=== PATIENT | male | born 1940 | race Caucasian/White ===

== ENCOUNTER 2016-12-07 09:22 | Emergency (ER) | payer MEDICAID, OTHER ==
[2016-12-07 09:31] VITALS: RESP 18
[2016-12-07] MEDS ORDERED: IPRATROPIUM/ALBUTEROL 3 ML DEYVIAL IH ONE (09:44)
--- NOTE | 2016-12-07 09:48 | EDPHY ---
H & P Stated Complaint: cough/congestion Time Seen by Provider: 12/07/16 09:35 HPI/ROS: CHIEF COMPLAINT: Cough HISTORY OF PRESENT ILLNESS: Patient is a 76-year-old man with a history of COPD who was 3 L of oxygen at baseline as well as type 2 diabetes, coronary artery disease, peripheral vascular disease with multiple stents and CABG who comes to the ER complaining of a cough and sinus congestion. He states that 1 week ago he had cold and he laid on the couch for an entire week. He felt like he was getting better but over the last 2 days has had increasing mucus production from his sinuses and from his cough. He does not feel short of breath. He denies chest pain. Denies wheezing. She denies fevers. He states that he also has mild constipation but this resolved after taking MiraLax. He states that he had a large loose bowel movement that resolves his symptoms 4 days ago but has not had another bowel movement since. He denies abdominal pain or distention. REVIEW OF SYSTEMS: Constitutional: denies: chills, fever, recent illness, recent injury EENTM: See HPI Respiratory: See HPI Cardiac: denies: chest pain, irregular heart rate, lightheadedness, palpitations Gastrointestinal/Abdominal: Constipation denies: abdominal pain, nausea, vomiting, blood streaked stools Genitourinary: denies: dysuria, frequency, hematuria, pain Musculoskeletal: denies: joint pain, muscle pain Skin: denies: lesions, rash, jaundice, bruising Neurological: denies: headache, numbness, paresthesia, tingling, dizziness, weakness Hematologic/Lymphatic: denies: blood clots, easy bleeding, easy bruising Immunologic/allergic: denies: HIV/AIDS, transplant EXAM: GENERAL: Well-appearing, well-nourished and in no acute distress. HEAD: Atraumatic, normocephalic. EYES: Pupils equal round and reactive to light, extraocular movements intact, sclera anicteric, conjunctiva are normal. ENT: TMs normal, nares patent, oropharynx clear without exudates. Moist mucous membranes. NECK: Normal range of motion, supple without lymphadenopathy or JVD. LUNGS: Breath sounds clear to auscultation bilaterally and equal. No wheezes mild rhonchi right lower lobe HEART: Regular rate and rhythm without murmurs, rubs or gallops. ABDOMEN: Soft, nontender, normoactive bowel sounds. No guarding, no rebound. No masses appreciated. BACK: No CVA tenderness, no spinal tenderness, step-offs or deformities EXTREMITIES: Normal range of motion, no pitting or edema. No clubbing or cyanosis. NEUROLOGICAL: Cranial nerves II through XII grossly intact. Normal speech, normal gait. 5/5 strength, normal movement in all extremities, normal sensation PSYCH: Normal mood, normal affect. SKIN: Warm, dry, normal turgor, no visible rashes or lesions. Source: Patient Exam Limitations: No limitations - Personal History Current Tetanus/Diphtheria Vaccine: Yes Tetanus Vaccine Date: UNSURE - Medical/Surgical History Hx Asthma: No Hx Chronic Respiratory Disease: Yes Hx Diabetes: Yes Hx Cardiac Disease: Yes Hx Renal Disease: No Hx Cirrhosis: No Hx Alcoholism: No Hx HIV/AIDS: No Hx Splenectomy or Spleen Trauma: No Other PMH: PVD, DM. CARDIAC STENTS, LEG STENTS, SHINGLES, PROSTATE CANCER, EMPHYSEMA, quadruple bypass (2014) - Family History Significant Family History: Hypertension - Social History Smoking Status: Former smoker Alcohol Use: Sober Drug Use: None Constitutional: Initial Vital Signs Temperature (C) 36.4 C 12/07/16 09:27 Heart Rate 75 12/07/16 09:27 Respiratory Rate 18 12/07/16 09:27 Blood Pressure 144/80 H 12/07/16 09:27 O2 Sat (%) 90 L 12/07/16 09:27 O2 Delivery Mode Room Air Allergies/Adverse Reactions: No Known Allergies Allergy (Verified 12/07/16 09:26) Home Medications: Medication Instructions Recorded Aspirin [Aspirin 81mg (*)] 81 mg PO DAILY 12/09/14 Beclomethasone Qvar 40 [Qvar 40 1 puffs IH BID 12/09/14 (*)] Cholecalciferol Vit D3 [Vitamin D3 1,000 units PO DAILY 12/09/14 (*)] Fluticasone Nasal [Flonase Nasal 1 sprays NASAL DAILY 12/09/14 [place]] Metformin HCl [Metformin 1000 mg] 1,000 mg PO BIDMEAL 12/09/14 Multivitamins [Multivitamin (*)] 1 each PO DAILY 12/09/14 Nitroglycerin 0.4 mg SL PRN PRN 12/09/14 [place]-3 Fatty Acids [Fish Oil 1000 1,000 mg PO DAILY 12/09/14 mg (*)] Varenicline Tartrate [Chantix 1MG 1 mg PO BID 12/09/14 (*)] Tamsulosin HCl [Flomax 0.4 MG (*)] 0.4 mg PO DAILY #30 cap 12/13/14 Anoro Ellipta 62.5-25 Mcg INH 1 puffs IH DAILY 06/03/16 Azelastine 2 sprays EACHNARE BID 06/03/16 Coreg 12.5 mg PO DAILY 06/03/16 Lasix 40 MG (*) 1 tab PO DAILY 06/03/16 Levemir 35 units SQ HS 06/03/16 Levemir 45 units SQ DAILY06 06/03/16 Proventil 1 puffs IH Q6H PRN 06/03/16 Vitamin C 1 tab PO DAILY 06/03/16 AZITHROMYCIN [Z-PACK] 250 mg PO DAILY #4 tab 12/07/16 Medical Decision Making - Diagnostics EKG Interpretation: An EKG obtained and was read and documented in trace view. Please see trace view for full reading and report. Sinus rhythm, interventricular conduction delay, nonspecific T-wave inversions, similar to previous Imaging: X-ray: chest x-ray was obtained. I viewed the images myself on the PACS system. My interpretation of the images is: Bronchiectasis changes. The radiologist interpretation is no acute cardiopulmonary disease. ED Course/Re-evaluation: 11:10 a.m. the patient is doing well. He is saturating 93% on room air while asleep. He does occasionally dip down to 89% while talking. This is normal for him. He is supposed to wear 2-3 L of oxygen. I encouraged him to do this. I will also start him on azithromycin for what primarily appears to be a sinus infection and postnasal drip. His x-ray is reassuring. His lab work is reassuring. He understands this and is eager to go home. We discussed indications for returning. I encouraged him to return in 24 hours or sooner if he is not improving. Additional verbal discharge instructions given. Differential Diagnosis: Partial list of the Differential diagnosis considered include but were not limited to; sinusitis, bronchitis, pneumonia, COPD exacerbation and although unlikely based on the history and physical exam, I also considered dissection, acute coronary disease, PE. I discussed these differential diagnoses and the plan with the patient as well as the usual and expected course. The patient understands that the diagnosis is provisional and that in medicine we are not always correct and that further workup is often warranted. Usual and customary warnings were given. All of the patient's questions were answered. The patient was instructed to return to the emergency department should the symptoms at all worsen or return, otherwise to followup with the physician as we discussed. - Data Points Laboratory Results: Laboratory Results 12/07/16 10:00 12/07/16 10:00 12/07/16 10:00 WBC 10.12 H 10^3/uL (3.80-9.50) RBC 4.58 10^6/uL (4.40-6.38) Hgb 12.4 L g/dL (13.7-17.5) Hct 39.4 L % (40.0-51.0) MCV 86.0 fL (81.5-99.8) MCH 27.1 L pg (27.9-34.1) MCHC 31.5 L g/dL (32.4-36.7) RDW 15.0 % (11.5-15.2) Plt Count 264 10^3/uL (150-400) MPV 9.9 fL (8.7-11.7) Neut % (Auto) 76.6 H % (39.3-74.2) Lymph % (Auto) 8.7 L % (15.0-45.0) [place] % (Auto) 12.8 % (4.5-13.0) Eos % (Auto) 1.2 % (0.6-7.6) Baso % (Auto) 0.3 % (0.3-1.7) Nucleat RBC Rel Count 0.0 % (0.0-0.2) Absolute Neuts (auto) 7.75 H 10^3/uL (1.70-6.50) Absolute Lymphs (auto) 0.88 L 10^3/uL (1.00-3.00) Absolute Monos (auto) 1.30 H 10^3/uL (0.30-0.80) Absolute Eos (auto) 0.12 10^3/uL (0.03-0.40) Absolute Basos (auto) 0.03 10^3/uL (0.02-0.10) Absolute Nucleated RBC 0.00 10^3/uL (0-0.01) Immature Gran % 0.4 % (0.0-1.1) Immature Gran # 0.04 10^3/uL (0.00-0.10) VBG Lactic Acid 1.0 mmol/L (0.7-2.1) Sodium 144 mEq/L (134-144) Potassium 4.8 mEq/L (3.5-5.2) Chloride 100 mEq/L (97-110) Carbon Dioxide 29 mEq/l (22-31) Anion Gap 15 mEq/L (8-16) BUN 32 H mg/dL (7-23) Creatinine 1.0 mg/dL (0.7-1.3) Estimated GFR > 60 Glucose 115 H mg/dL (70-100) Calcium 9.4 mg/dL (8.5-10.4) Influenza Typ A,B (DFA) NEGATIVE FOR FLU (NEGATIVE) Medications Given: Discontinued Medications Albuterol/Ipratropium (Duoneb) 3 ml IH EDNOW ONE Stop: 12/07/16 09:45 Last Admin: 12/07/16 10:11 Dose: 3 ml Azithromycin (Zithromax) 500 mg PO EDNOW ONE PRN Reason: Protocol Stop: 12/07/16 11:13 Last Admin: 12/07/16 11:20 Dose: 500 mg Departure - Departure Disposition: Home, Routine, Self-Care Clinical Impression: Acute bronchitis Qualifiers: Bronchitis organism: unspecified organism Qualifier Code: (J20.9) Acute bronchitis, unspecified Sinusitis Qualifiers: Sinusitis location: unspecified location Chronicity: acute Recurrence: non- recurrent Qualifier Code: (J01.90) Acute sinusitis, unspecified Condition: Fair Instructions: Acute Bronchitis (ED), Sinusitis (ED), Azithromycin (By mouth) Additional Instructions: Continue taking your albuterol inhaler as we discussed. Also wear oxygen as we discussed. Return if your symptoms are not improving at than 24 hours. Referrals: Aleksandra Dominguez MD [Primary Care Provider] - As per Instructions Prescriptions: AZITHROMYCIN [Z-PACK] 250 mg PO DAILY #4 tab
--- NOTE | 2016-12-07 10:09 | CPEKG ---
Heart Rate: 56 RR Interval: 1071 P-R Interval: 160 QRSD Interval: 130 QT Interval: 400 QTC Interval: 387 P [place]: 56 QRS [place]: 49 T Wave [place]: 114 EKG Severity - ABNORMAL ECG - EKG Impression: SINUS RHYTHM EKG Impression: NONSPECIFIC INTRAVENTRICULAR CONDUCTION DELAY EKG Impression: similar to previous Electronically Signed By: Jaison Gaytan 07-Dec-2016 10:18:54
--- NOTE | 2016-12-07 10:18 | DX ---
Chest 2 View History: Dyspnea Comparisons: 31 January 2014 Findings: Heart size is within normal limits. The aorta is tortuous with calcifications indicating at herosclerotic disease. Emphysematous configuration to the chest. Mild peribronchial wall thickening. Mild fibrotic change of both lung bases. No evidence for pleural effusion. Mild degenerative change i n the thoracic spine. Impression: No evidence for acute cardiopulmonary abnormality. Chronic findings as above.
[2016-12-07 10:19] LABS: % IMMATURE GRANULYOCYTES 0.4 % (0.0-1.1); ABSOLUTE IMMATURE GRANULOCYTES 0.04 10^3/uL (0.00-0.10); ADD DIFF? NO; ADD MORPH? NO; ADD SCAN? NO; ATYPICAL LYMPHOCYTE FLAG 0 (0-99); FRAGMENT RBC FLAG 0 (0-99); HEMATOCRIT 39.4 % (40.0-51.0); HEMOGLOBIN 12.4 g/dL (13.7-17.5); LEFT SHIFT FLG 0 (0-99); LIPEMIA HEMOLYSIS FLAG 80 (0-99); MEAN CELL HEMOGLOBIN 27.1 pg (27.9-34.1); MEAN CELL HEMOGLOBIN CONCENTR. 31.5 g/dL (32.4-36.7); MEAN PLATELET VOLUME 9.9 fL (8.7-11.7); PLATELET CLUMPS FLAG 0 (0-99); PLATELET COUNT 264 10^3/uL (150-400); RED BLOOD CELL COUNT 4.58 10^6/uL (4.40-6.38)
[2016-12-07 10:36] LABS: ANION GAP 15 mEq/L (8-16); CALCIUM 9.4 mg/dL (8.5-10.4); CARBON DIOXIDE 29 mEq/l (22-31); CHLORIDE 100 mEq/L (97-110); GLOMERULAR FILTRATION RATE > 60; GLUCOSE 115 mg/dL (70-100); POTASSIUM 4.8 mEq/L (3.5-5.2); SODIUM 144 mEq/L (134-144)
[2016-12-07] MEDS ORDERED: AZITHROMYCIN 250 MG TAB PO ONE (11:12)
[2016-12-07 11:36] VITALS: BP 134/74; PULSE 73; TEMP 98.2; O2SAT 87
== END 2016-12-07 11:34 | disposition home or self-care (01) ==
DX: J20.9 Acute bronchitis, unspecified (principal); J01.90 Acute sinusitis, unspecified; E11.9 Type 2 diabetes mellitus without complications; Z85.46 Personal history of malignant neoplasm of prostate; Z79.82 Long term (current) use of aspirin; Z95.5 Presence of coronary angioplasty implant and graft; Z87.891 Personal history of nicotine dependence

== ENCOUNTER → 2017-08-25 | Outpatient (CLI) | payer OTHER, MEDICAID | LOC: FIMAGING 10:55 | PROVIDERS: ATTEND Psychiatry & Neurology Neurology | DX: C79.51 Secondary malignant neoplasm of bone (principal); M50.21 Other cervical disc displacement, high cervical region; M50.30 Other cervical disc degeneration, unspecified cervical region; Z85.46 Personal history of malignant neoplasm of prostate ==

== ENCOUNTER 2018-07-18 12:29 | Observation (INO) | payer OTHER, MEDICAID ==
--- NOTE | 2018-07-18 13:28 | EDPHY ---
General - History Smoking Status: Former smoker Time Seen by Provider: 07/18/18 13:17 Narrative: CHIEF COMPLAINT: Cough HISTORY OF PRESENT ILLNESS: Patient presents with complaints of cough. This been present for nearly 3 weeks. It was dry at 1st but not productive with thick sputum. He feels that it started in his sinuses and throat with drainage. Symptoms have been persistent without improvement. He has had no chest pain during this. He has had no shortness of breath. He feels that his right ribs have been sore only when coughing. He does associate this with some drainage and crusting of the eyelids at times, runny nose and congestion. No exertional complaints. No orthopnea. He has no swelling of the lower extremity side of baseline. No recent travel, trauma or surgery. Evaluated by his oncologist recently with clinical suggestion of upper respiratory infection. No formal workup. No other associated complaints or modifying factors. REVIEW OF SYSTEMS: Ten systems reviewed and are negative unless otherwise noted in the HPI PCP: Dr. Aleksandra Dominguez SPECIALISTS: Dr. Isaacs, oncology Dr. Lou, cardiology PAST MEDICAL HISTORY: Prostate cancer with ongoing oral chemotherapy. Coronary artery disease, peripheral vascular disease, diabetes mellitus, shingles, emphysema PAST SURGICAL HISTORY: No recent surgical history. He status post fem-pop bypasses, cardiac stent placement, CABG SOCIAL HISTORY: Never smoker. Lives independently with his partner. FAMILY HISTORY: Noncontributory EXAMINATION General Appearance: Alert, no distress Head: normocephalic, atraumatic Eyes: Pupils equal and round, no conjunctival pallor or injection. EOM symmetric. ENT, Mouth: Mucous membranes moist Neck: Normal inspection, supple, non-tender Respiratory: Mild expiratory wheezes. Mild rhonchi. No crackles, diminishment or consolidation. Cardiovascular: Regular rate and rhythm Gastrointestinal: Abdomen is soft and nontender Back: non-tender, no bony abnormalities Neurological: A&O, nonfocal, normal gait Skin: Warm and dry, no rash Extremities: Nontender, no pedal edema Psychiatric: Mood and affect normal DIFFERENTIAL DIAGNOSES: Including but not limited to bronchitis, pneumonia, pneumonitis, PE, pleurisy, congestive heart failure, sepsis MDM: 1:20 p.m. Cough x3 weeks that has been somewhat productive. No fever. No chest pain. No shortness of breath. He has normal vital signs and is on his baseline level of 3 L supplemental oxygen at home. I have ordered chest x-ray two view and DuoNeb treatment. He in no acute distress. 1:40 p.m. Case discussed with Dr. Henriquez and she recommends laboratory studies given the patient's age and history of cancer. I do feel this is reasonable. 2:00 p.m. Chest x-ray does reveal possible left upper lobe pneumonia with increased metastatic disease, which is known to the patient. 2:[address] Ebony Henriquez has evaluated the patient. She recommends CT angiography of the chest to rule out PE and for further evaluation of the possible pneumonia. 3:[address] scan does reveal and left segmental PE. There is no visualize pneumonia. There are chronic changes as noted in the report. Given the patient's PE, age, history of prostatic cancer and oxygen dependency Dr. Henriquez recommends admission the hospital. I will discuss with hospitalist. 4:00 p.m. Case discussed with hospitalist Dr. Soto. He will admit the patient to his service. He requested 1 milligram/kilogram dosing of Lovenox. The patient is admitted in stable condition. SUPERVISION: Patient was independently examined, but I discussed the case with my secondary supervising physician Dr. Henriquez (Anil Garcia) Discussion: I evaluated and participated in the management of the patient. I also evaluated the patient independently. My co-signature indicates that I have reviewed this chart and I agree with the findings and plan of care as documented. 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 He has not been running a fever. Cough is not particularly productive. He denies any chest pain. Past history significant for prostate cancer on oral chemotherapy, coronary artery disease, peripheral vascular disease, diabetes, and COPD. Patient does report that he has not been using his inhalers recently. On examination the patient actually looks quite well. He has an occasional cough. VITAL SIGNS: see nurse's notes. GEN: Well-developed, well-nourished, in no acute distress. HEENT: Normal, no discharge or icterus, moist mucous membranes. Neck: supple, FROM. LUNGS: Diminished breath sounds throughout, occasional faint wheeze auscultated. No rhonchi. CARDIAC: Regular rate and rhythm, no rubs, murmurs or gallops. ABDOMEN: Soft, nontender, nondistended, bowel sounds normal. BACK: No CVA tenderness. No vertebral tenderness. EXTREMITIES: No edema, FROM. NEURO: Alert and oriented, grossly nonfocal. SKIN: Warm and dry, no rash. Chest x-ray indicated potential patchy infiltrate in the left upper lobe. Given patient's history of cancer and numerous weeks of ongoing symptoms, CT scan of the chest was ordered to further evaluate for potential infection versus radiation changes verses pulmonary embolism. CT scan was positive for segmental pulmonary emboli. Patient's course was discussed with the hospitalist service. He will be admitted to the hospital for ongoing anticoagulation and further evaluation. Patient understands the implications this pulmonary emboli. (Ebony Henriquez) - Objective Vital Signs: Initial Vital Signs Temperature (C) 36.3 C 07/18/18 12:44 Heart Rate 72 07/18/18 12:44 Respiratory Rate 18 07/18/18 12:44 Blood Pressure 145/73 H 07/18/18 12:44 O2 Sat (%) 91 L 07/18/18 12:44 O2 Delivery Mode Room Air O2 (L/minute) 3 Allergies/Adverse Reactions: No Known Allergies Allergy (Verified 07/18/18 12:42) Home Medications: Medication Instructions Recorded Aspirin [Aspirin 81mg (*)] 81 mg PO HS 12/09/14 Beclomethasone Qvar 40 [Qvar 40] 1 puffs IH BID 12/09/14 Cholecalciferol Vit D3 [Vitamin D3 5,000 units PO BID 12/09/14 (*)] Fluticasone Nasal [Flonase Nasal 1 sprays NASAL DAILY 12/09/14 [place]] Metformin HCl [Metformin 1000 mg] 1,000 mg PO BIDMEAL 12/09/14 Multivitamins [Multivitamin (*)] 1 each PO DAILY 12/09/14 Nitroglycerin 0.4 mg SL PRN PRN 12/09/14 [place]-3 Fatty Acids [Fish Oil 1000 1,000 mg PO DAILY 12/09/14 mg (*)] Varenicline Tartrate [Chantix 1MG 1 mg PO BID 12/09/14 (*)] Tamsulosin HCl [Flomax 0.4 MG (*)] 0.4 mg PO DAILY #30 cap 12/13/14 Anoro Ellipta 62.5-25 Mcg INH 1 puffs IH DAILY 06/03/16 Ascorbic Acid [Vitamin C 500 mg 1,000 mg PO DAILY 06/03/16 (*)] Azelastine 2 sprays EACHNARE BID 06/03/16 Levemir 35 units SQ HS 06/03/16 Levemir 45 units SQ DAILY06 06/03/16 Abiraterone Acetate [Zytiga] 1,000 mg PO DAILY 07/18/18 Carvedilol [Coreg (*)] 6.25 mg PO BIDMEAL 07/18/18 Denosumab [Prolia] 60 mg SQ Q90D 07/18/18 Furosemide [Lasix 20 MG (*)] 20 mg PO BID 07/18/18 Enoxaparin [Lovenox 80 MG (*)] 80 mg SC BID@0400,1600 #14 syr 07/19/18 Enoxaparin [Lovenox 80 MG (*)] 80 mg SQ Q12H #24 syr 07/19/18 Warfarin Sodium 5 mg PO HS #30 tablet 07/19/18 guaiFENesin [Mucinex 600 MG (*)] 1,200 mg PO BID tab.er 07/19/18 Laboratory Results: Laboratory Results 07/18/18 14:01 07/18/18 14:01 Medications Given: Discontinued Medications Acetaminophen (Tylenol) 650 mg PO Q4HRS PRN PRN Reason: Pain, Mild/Fever, Can Take PO Stop: 01/14/19 16:11 Last Admin: 07/18/18 21:37 Dose: 650 mg Albuterol/Ipratropium (Duoneb) 3 ml IH EDNOW ONE Stop: 07/18/18 13:30 Last Admin: 07/18/18 13:47 Dose: 3 ml Albuterol/Ipratropium (Duoneb) 3 ml IH Q6HRS [place] Stop: 01/14/19 17:59 Last Admin: 07/19/18 10:21 Dose: 3 ml Ascorbic Acid (Vitamin C) 1,000 mg PO DAILY [place] Stop: 01/15/19 08:59 Last Admin: 07/19/18 08:38 Dose: 1,000 mg Aspirin (Aspirin) 81 mg PO HS [facility] Stop: 01/14/19 20:59 Last Admin: 07/18/18 21:37 Dose: 81 mg Azelastine HCl (Astelin) 2 sprays EACHNARE BID [facility] Stop: 01/14/19 20:59 Last Admin: 07/19/18 08:44 Dose: 2 spray Beclomethasone Dipropionate (Qvar Redihaler) 1 inh IH BID [facility] Stop: 01/14/19 20:59 Last Admin: 07/19/18 10:13 Dose: 1 inh Carvedilol (Coreg) 6.25 mg PO BIDMEAL [facility] Stop: 01/14/19 17:59 Last Admin: 07/19/18 08:37 Dose: 6.25 mg Cetirizine HCl (Zyrtec) 10 mg PO HS [facility] Stop: 01/14/19 20:59 Last Admin: 07/18/18 21:37 Dose: 10 mg Cholecalciferol (Vitamin D) 5,000 units PO BID [facility] Stop: 01/14/19 20:59 Last Admin: 07/19/18 08:38 Dose: 5,000 units Enoxaparin Sodium (Lovenox) 80 mg SC EDNOW ONE Stop: 07/18/18 15:56 Last Admin: 07/18/18 16:11 Dose: 80 mg Enoxaparin Sodium (Lovenox) 80 mg SC BID@0400,1600 [facility] Stop: 01/15/19 03:59 Last Admin: 07/19/18 14:44 Dose: 80 mg Fluticasone Propionate (Flonase Nasal [place]) 1 sprays EACHNARE DAILY [facility] Stop: 01/15/19 08:59 Last Admin: 07/19/18 08:45 Dose: 1 spray Furosemide (Lasix) 20 mg PO BID [facility] Stop: 01/14/19 20:59 Last Admin: 07/19/18 08:38 Dose: 20 mg Guaifenesin (Mucinex) 1,200 mg PO BID [facility] Stop: 01/14/19 20:59 Last Admin: 07/19/18 08:38 Dose: 1,200 mg Sodium Chloride (Ns) 500 mls @ 1,000 mls/hr IV EDNOW ONE PRN Reason: Protocol Stop: 07/18/18 15:30 Last Admin: 07/18/18 15:05 Dose: 500 mls Insulin Glargine (Lantus Syringe) 40 units SC BID [place] Stop: 01/14/19 20:59 Last Admin: 07/19/18 10:13 Dose: 40 units Insulin Human Regular (Humulin R) 0 unit SC ACHS CABRERA PRN Reason: Protocol Stop: 01/14/19 20:59 Last Admin: 07/19/18 12:03 Dose: Not Given Miscellaneous Medication (Abiraterone Acetate [Zytiga]) 1,000 mg PO DAILY [place] Stop: 01/15/19 08:59 Last Admin: 07/19/18 10:58 Dose: Not Given Miscellaneous Medication (Anoro Ellipta 62.5-25 Mcg Inh) 1 puffs IH DAILY [place] Stop: 01/15/19 08:59 Last Admin: 07/19/18 10:20 Dose: Not Given Multivitamins (Tab-A-Sanjeev) 1 each PO DAILY [place] Stop: 01/15/19 08:59 Last Admin: 07/19/18 08:37 Dose: 1 each [id number] Ethyl Esters (Fish Oil) 1,000 mg PO DAILY [place] Stop: 01/15/19 08:59 Last Admin: 07/19/18 08:37 Dose: 1,000 mg Tamsulosin HCl (Flomax) 0.4 mg PO DAILY [place] Stop: 01/15/19 08:59 Last Admin: 07/19/18 08:38 Dose: 0.4 mg Varenicline (Chantix) 1 mg PO BID [facility] Stop: 01/14/19 20:59 Last Admin: 07/19/18 08:44 Dose: 1 mg Departure - Departure Disposition: [facility] Acute Clinical Impression: Pulmonary embolus, left, Bronchitis, Prostate cancer Condition: Good
[2018-07-18] MEDS ORDERED: IPRATROPIUM/ALBUTEROL 3 ML DEYVIAL IH ONE (13:29)
[2018-07-18 14:10] LABS: PLATELET COUNT 233 10^3/uL (150-400)
[2018-07-18] MEDS ORDERED: NS 500 ML IV ONE (15:01)
[2018-07-18] MEDS ORDERED: IOPAMIDOL (ISOVUE 370) 100 ML BTL IV ONE (15:06)
[2018-07-18] MEDS ORDERED: ENOXAPARIN 80 MG/0.8 ML SYR SC ONE (15:55)
[2018-07-18] MEDS ORDERED: ONDANSETRON DISINTEGRATING 4 MG TAB PO PRN (16:12)
[2018-07-18] MEDS ORDERED: ONDANSETRON 4 MG/2 ML VIAL IVP PRN (16:12)
[2018-07-18] MEDS ORDERED: ACETAMINOPHEN 325 MG TAB PO PRN (16:12)
[2018-07-18] MEDS ORDERED: NITROGLYCERIN 0.4 MG BTL SL PRN (17:52)
[2018-07-18] MEDS ORDERED: D50W 25 GM/50 ML SYR IVP PRN (17:54)
--- NOTE | 2018-07-18 17:58 | PDGENHP ---
History and Physical - Chief Complaint Acute cough - History of Present Illness Primary care provider: Dr. Devi Dominguez Primary spool sorter: Dr. Higinio Lou Primary manager camp: [facility] HPI: 77-year-old male presenting with acute cough characterized as nonproductive with associated exertional shortness of breath, postnasal drip with onset of symptoms approximately 3 weeks ago and constant duration thereafter. The patient reports that his cough has been mildly alleviated by duo nebulizer treatment received in the emergency department. He has been attempting to manage it with his home albuterol inhaler without any significant improvement prior to presenting. He reports that approximately 3 days ago he electively discontinued his home inhaled steroid as well as his home long acting beta agonist because he is due for an annual oxygen need reassessment and he did not want these medications to skew his results. The patient has also been taking Afrin to alleviate his postnasal drip, and although this has been mildly effective, the patient is concerned regarding persistent use of this medication. He has otherwise been afebrile, has not had any chest pain, but does endorse some mild lower extremity edema. He denies any recent travel. History Information - Allergies/Home Medication List Allergies/Adverse Reactions: No Known Allergies Allergy (Verified 07/18/18 12:42) Home Medications: Aspirin [Aspirin 81mg (*)] 81 mg PO HS 12/09/14 [Last Taken 07/17/18] Beclomethasone Qvar 40 [Qvar 40] 1 puffs IH BID 12/09/14 [Last Taken 07/16/18] Cholecalciferol Vit D3 [Vitamin D3 (*)] 5,000 units PO BID 12/09/14 [Last Taken 07/18/18 AM DOSE] Fluticasone Nasal [Flonase Nasal [place]] 1 sprays NASAL DAILY 12/09/14 [Last Taken Unknown] Metformin HCl [Metformin 1000 mg] 1,000 mg PO BIDMEAL 12/09/14 [Last Taken 07/18] Multivitamins [Multivitamin (*)] 1 each PO DAILY 12/09/14 [Last Taken 07/18/18] Nitroglycerin 0.4 mg SL PRN PRN 12/09/14 [Last Taken Unknown] Enochs-3 Fatty Acids [Fish Oil 1000 mg (*)] 1,000 mg PO DAILY 01/19/15 [Last Taken 07/18/18] Varenicline Tartrate [Chantix 1MG (*)] 1 mg PO BID 12/09/14 [Last Taken AM DOSE] Anoro Ellipta 62.5-25 Mcg INH 1 puffs IH DAILY 06/03/16 [Last Taken 06/07/16] Ascorbic Acid [Vitamin C 500 mg (*)] 1,000 mg PO DAILY 06/03/16 [Last Taken ] Azelastine 2 sprays EACHNARE BID 06/03/16 [Last Taken 06/07/16] Levemir 35 units SQ HS 06/03/16 [Last Taken 07/17/18] Levemir 45 units SQ DAILY06 06/03/16 [Last Taken 07/18/18] Abiraterone Acetate [Zytiga] 1,000 mg PO DAILY 07/18/18 [Last Taken 07/18/18] Carvedilol [Coreg (*)] 6.25 mg PO BIDMEAL 07/18/18 [Last Taken 07/18/18 AM DOSE] Denosumab [Prolia] 60 mg SQ Q90D 07/18/18 [Last Taken 07/15/18] Furosemide [Lasix 20 MG (*)] 20 mg PO BID 07/18/18 [Last Taken 07/18/18 AM DOSE] I have personally reviewed and updated: family history, medical history, social history, surgical history - Past Medical History coronary artery disease (With CABG and cardiac stents), COPD (With chronic hypoxic respiratory failure, 3 L nasal cannula at baseline), 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 Metastatic prostate cancer with bony metastases, has received chemotherapy at [facility] - Surgical History Reports: coronary bypass surgery Additional surgical history: Bilateral femoral stents - Family History Additional family history: No family history of venous thromboembolism, mother had myocardial infarction and diabetes - Social History Smoking Status: Former smoker (Occasional cigarette use) Alcohol Use: None Drug Use: None Additional social history: Reports that he is physically active at baseline Review of Systems Review of Systems: ROS: 10pt was reviewed & negative except for what was stated in HPI & below EENMT: Reports: other (Postnasal drip) Cardiac: Reports: edema Respiratory: Reports: cough, shortness of breath Physical Exam Physical Exam: Temp Pulse Resp BP Pulse Ox 36.3 C 68 16 134/78 H 93 07/18/18 12:44 07/18/18 17:22 07/18/18 17:22 07/18/18 17:22 07/18/18 17:22 Constitutional: no apparent distress, appears nourished, not in pain Eyes: PERRL, anicteric sclera, EOMI Ears, Nose, Mouth, Throat: moist mucous membranes, hearing normal, ears appear normal, no oral mucosal ulcers Cardiovascular: systolic murmur (1/6 at the apex), edema (Trace bilateral lower extremities), No irregularly irregular, No tachycardia, No bradycardia Respiratory: expiratory wheeze (Faint on left posteriorly), bronchial breath sounds (Faint anteriorly bilaterally), No reduced air movement, No inspiratory crackles, No respiratory distress Gastrointestinal: normoactive bowel sounds, soft, non-tender abdomen, no palpable masses Skin: warm, No rash Neurologic: AAOx3, sensation intact bilaterally, No weakness Psychiatric: interacting appropriately, not anxious, not encephalopathic, thought process linear Lab Data & Imaging Review 07/18/18 14:01 07/18/18 14:01 WBC 10.66 10^3/uL (3.80-9.50) H 07/18/18 14:01 RBC 4.32 10^6/uL (4.40-6.38) L 07/18/18 14:01 Hgb 11.8 g/dL (13.7-17.5) L 07/18/18 14:01 Hct 36.5 % (40.0-51.0) L 07/18/18 14:01 MCV 84.5 fL (81.5-99.8) 07/18/18 14:01 MCH 27.3 pg (27.9-34.1) L 07/18/18 14:01 MCHC 32.3 g/dL (32.4-36.7) L 07/18/18 14:01 RDW 14.7 % (11.5-15.2) 07/18/18 14:01 Plt Count 233 10^3/uL (150-400) 07/18/18 14:01 MPV 9.8 fL (8.7-11.7) 07/18/18 14:01 Neut % (Auto) 80.0 % (39.3-74.2) H 07/18/18 14:01 Lymph % (Auto) 8.1 % (15.0-45.0) L 07/18/18 14:01 [place] % (Auto) 9.2 % (4.5-13.0) 07/18/18 14:01 Eos % (Auto) 1.9 % (0.6-7.6) 07/18/18 14:01 Baso % (Auto) 0.1 % (0.3-1.7) L 07/18/18 14:01 Nucleat RBC Rel Count 0.0 % (0.0-0.2) 07/18/18 14:01 Absolute Neuts (auto) 8.54 10^3/uL (1.70-6.50) H 07/18/18 14:01 Absolute Lymphs (auto) 0.86 10^3/uL (1.00-3.00) L 07/18/18 14:01 Absolute Monos (auto) 0.98 10^3/uL (0.30-0.80) H 07/18/18 14:01 Absolute Eos (auto) 0.20 10^3/uL (0.03-0.40) 07/18/18 14:01 Absolute Basos (auto) 0.01 10^3/uL (0.02-0.10) L 07/18/18 14:01 Absolute Nucleated RBC 0.00 10^3/uL (0-0.01) 07/18/18 14:01 Immature Gran % 0.7 % (0.0-1.1) 07/18/18 14:01 Immature Gran # 0.07 10^3/uL (0.00-0.10) 07/18/18 14:01 Sodium 142 mEq/L (135-145) 07/18/18 14:01 Potassium 4.0 mEq/L (3.3-5.0) 07/18/18 14:01 Chloride 104 mEq/L (97-110) 07/18/18 14:01 Carbon Dioxide 30 mEq/l (22-31) 07/18/18 14:01 Anion Gap 8 mEq/L (8-16) 07/18/18 14:01 BUN 28 mg/dL (7-23) H 07/18/18 14:01 Creatinine 0.8 mg/dL (0.7-1.3) 07/18/18 14:01 Estimated GFR > 60 07/18/18 14:01 Glucose 88 mg/dL (70-100) 07/18/18 14:01 Calcium 9.1 mg/dL (8.5-10.4) 07/18/18 14:01 Total Bilirubin 0.3 mg/dL (0.1-1.4) 07/18/18 14:01 Conjugated Bilirubin 0.1 mg/dL (0.0-0.5) 07/18/18 14:01 Unconjugated Bilirubin 0.2 mg/dL (0.0-1.1) 07/18/18 14:01 AST 14 IU/L (17-59) L 07/18/18 14:01 ALT 26 IU/L (21-72) 07/18/18 14:01 Alkaline Phosphatase 105 IU/L (38-126) 07/18/18 14:01 NT-Pro-B Natriuret Pep 833 pg/mL (0-450) H 07/18/18 14:01 Total Protein 6.1 g/dL (6.3-8.2) L 07/18/18 14:01 Albumin 3.7 g/dL (3.5-5.0) 07/18/18 14:01 Visualized and Interpreted Chest x-ray results: Yes Chest X-Ray results: no infiltrate Assessment & Plan Assessment: 77-year-old male presenting with acute COPD exacerbation secondary to acute segmental pulmonary embolism Plan: 1. Acute COPD exacerbation. Mild comma evidenced by some expiratory wheezes and bronchial breath sounds, most likely triggered by either upper respiratory viral infection or pulmonary embolism -symptomatically improved in the emergency department with DuoNeb, continue scheduled overnight, then reassess for p.r.n. Albuterol usage as outpatient -continue home medications, patient had recently discontinued his long-acting beta agonist as well as inhaled corticosteroid secondary to concerns about not qualifying for oxygen at his upcoming [facility] appointment -I would recommend that he continue these medications given that he is experiencing an acute exacerbation and he would benefit from optimizing his respiratory status is soon as possible -he may want to delay his outpatient annual oxygen reassessment, he can coordinate this through [facility] 2. Possible upper respiratory infection. Patient has been suboptimally treating the aforementioned symptoms, would recommend that he utilize mucolytic , antihistamine, DuoNeb treatment as above, gauge effect 3. Acute pulmonary embolism. Present on admission, left lower lobe on CT angiogram, unclear source -PESI 128, Class V high risk (10-25% 30-day mortality) -get lower extremity ultrasound to determine origination -will be a increased risk indefinitely given his underlying malignancy and will most likely require lifelong systemic anticoagulation -will continue on therapeutic dosing of Lovenox, whether not patient would like to utilize DOAC verses Lovenox shall be discussed with patient prior to discharge -recommend that he follow up at [facility] with his regular oncologist -monitor on telemetry for any development of a arrhythmias -BNP mildly elevated, patient does have underlying history of COPD, will obtain outside records including EKG, echo, BNP from [facility] to gauge his baseline 4. Diabetes mellitus type 2. Complicated by neuropathy, continue long-acting insulin with Lantus 40 twice daily, sliding scale, metformin 5. Coronary artery disease. Chronic, no chest pain, continue aspirin 81 in addition to systemic anticoagulation given his high coronary and peripheral arterial risk of stent occlusion Diet. Cardiac Prophylaxis. High risk, Lovenox 80 twice daily Code. Full per patient, vincent Hansen is MD POA Disposition. Anticipated discharge is 07/19, pending stabilization of conditions outlined above. I have discussed patient's presentation with emergency department provider Anil Garcia, we both agree the patient requires stabilization and observation overnight given his high pulmonary embolism severity index score.
[2018-07-18] MEDS: CARVEDILOL 6.25 MG TAB PO SCH (18:36)
[2018-07-18] MEDS: IPRATROPIUM/ALBUTEROL 3 ML DEYVIAL IH SCH ×2 (19:48→20:54)
[2018-07-18] MEDS ORDERED: D50W 25 GM/50 ML VIAL IVP PRN (20:00)
[2018-07-18] MEDS: BECLOMETHASONE QVAR 40 REDIHALER 120 INH/10.6 GM MDI IH SCH (20:54)
[2018-07-18] MEDS ORDERED: CETIRIZINE 10 MG TAB PO SCH (21:00)
[2018-07-18] MEDS ORDERED: ASPIRIN 81 MG CHEWABLE TAB PO SCH (21:00)
[2018-07-18] MEDS: guaiFENesin 600 MG TAB.ER PO SCH (21:37)
[2018-07-18] MEDS: FUROSEMIDE 20 MG TAB PO SCH (21:37)
[2018-07-18] MEDS: CHOLECALCIFEROL VIT D3 1,000 UNITS TAB PO SCH (21:37)
[2018-07-18] MEDS: VARENICLINE TARTRATE 1 MG TAB PO SCH (21:38)
[2018-07-18] MEDS: INSULIN GLARGINE 100 UNITS/ML UNIT SC SCH (21:41)
[2018-07-18] MEDS: INSULIN REGULAR HUMAN 100 UNIT/ML UNIT SC SCH (21:42)
[2018-07-18] MEDS: AZELASTINE NASAL MDI EACHNARE SCH (21:44)
[2018-07-19] MEDS: ENOXAPARIN 80 MG/0.8 ML SYR SC SCH ×2 (04:25→14:44)
[2018-07-19 04:51] LABS: PLATELET COUNT 216 10^3/uL (150-400)
[2018-07-19] MEDS: IPRATROPIUM/ALBUTEROL 3 ML DEYVIAL IH SCH ×2 (06:08→10:21)
[2018-07-19] MEDS: CARVEDILOL 6.25 MG TAB PO SCH (08:37)
[2018-07-19] MEDS: CHOLECALCIFEROL VIT D3 1,000 UNITS TAB PO SCH (08:38)
[2018-07-19] MEDS: FUROSEMIDE 20 MG TAB PO SCH (08:38)
[2018-07-19] MEDS: guaiFENesin 600 MG TAB.ER PO SCH (08:38)
[2018-07-19] MEDS: INSULIN REGULAR HUMAN 100 UNIT/ML UNIT SC SCH ×2 (08:39→12:03)
[2018-07-19] MEDS: AZELASTINE NASAL MDI EACHNARE SCH (08:44)
[2018-07-19] MEDS: VARENICLINE TARTRATE 1 MG TAB PO SCH (08:44)
[2018-07-19] MEDS ORDERED: FLUTICASONE NASAL 120 SPRAYS/16 GM MDI EACHNARE SCH (09:00)
[2018-07-19] MEDS ORDERED: MULTIVITAMINS 1 EACH TAB PO SCH (09:00)
[2018-07-19] MEDS ORDERED: TAMSULOSIN HCL 0.4 MG CAP PO SCH (09:00)
[2018-07-19] MEDS ORDERED: Abiraterone Acetate [Zytiga] 1,000 MG PO SCH (09:00)
[2018-07-19] MEDS ORDERED: OMEGA-3 FATTY ACIDS 1,000 MG CAP PO SCH (09:00)
[2018-07-19] MEDS ORDERED: ANORO ELLIPTA IH SCH (09:00)
[2018-07-19] MEDS ORDERED: ASCORBIC ACID 500 MG TAB PO SCH (09:00)
[2018-07-19] MEDS: BECLOMETHASONE QVAR 40 REDIHALER 120 INH/10.6 GM MDI IH SCH (10:13)
[2018-07-19] MEDS: INSULIN GLARGINE 100 UNITS/ML UNIT SC SCH (10:13)
[2018-07-19 12:02] VITALS: BP 104/56
--- NOTE | 2018-07-19 12:33 | HOSPPROG ---
Hospitalist Progress Note Assessment/Plan: 77 yo M w copd, prostate CA here w small PE PE: on LMWH reasonable to transition to DOAc no dvt on baseline 02 copd: on baseline 02 has wet cough agree w guaifenesin, holding steroids prostate CA: lupron, xitigua dm: pinky dispo: possible dc later today Subjective: feels like breathing is at baseline. somewhat anxious for dc Objective: Vital Signs Temp Pulse Resp BP Pulse Ox 36.3 C 63 20 104/56 L 91 L 07/19/18 12:00 07/19/18 12:00 07/19/18 12:00 07/19/18 12:00 07/19/18 12:00 Laboratory Results 07/19/18 04:29 07/19/18 04:29 07/18/18 07/19/18 07/20/18 05:59 05:59 05:59 Intake Total 620 Output Total 500 Balance 620 -500 - Physical Exam Constitutional: no apparent distress, appears nourished Eyes: PERRL, anicteric sclera Ears, Nose, Mouth, Throat: moist mucous membranes, hearing normal Cardiovascular: regular rate and rhythym, no murmur, rub, or gallop, No tachycardia Respiratory: other (decreased air movement w no wheeze, wet cough) Gastrointestinal: normoactive bowel sounds, soft, non-tender abdomen Genitourinary: no bladder fullness, No lewis in urethra Skin: warm, normal color Musculoskeletal: full muscle strength, no muscle tenderness Neurologic: AAOx3 ICD10 Worksheet Patient Problems: Problems Problem Status Onset Bronchitis Acute Prostate cancer Acute Pulmonary embolus, left Acute Hyperkalemia Acute
--- NOTE | 2018-07-19 14:20 | GDS ---
[f rep st] DISCHARGE SUMMARY DISCHARGE DIAGNOSES: 1. Acute pulmonary embolism, small volume. 2. History of chronic obstructive pulmonary disease. 3. Metastatic prostate cancer. 4. Osteoporosis. 5. Chronic hypoxemic respiratory failure. 6. Cough. 7. Dyspnea on exertion. 8. Coronary artery disease with history of coronary artery bypass graft and cardiac stents. 9. Type 2 diabetes. HOSPITAL COURSE: Please see admission history and physical by Dr. Haroon Soto. Patient presented wi th cough. ER evaluation revealed the patient had a small volume pulmonary embolism. Given his conco mitant lung disease, his risk score was falsely elevated. The patient is on his baseline oxygen requ irement. He ambulated with PT and felt well. He was very anxious for discharge as Tuesday is his and he wants to go home and have smoked prime rib which his son makes. Patient was initiated on low molecular weight heparin. Direct oral anticoagulant is going to be too expensive after a 1-month free trial, so he was therefore discharged on warfarin. [facility]. We will follow his INR. /[id number]/MODL
--- NOTE | 2018-07-19 14:51 | CPEKG ---
Test Reason : OPEN Blood Pressure : / mmHG Vent. Rate : 065 BPM Atrial Rate : 066 BPM P-R Int : 156 ms QRS Dur : 124 ms QT Int : 458 ms P-R-T Axes : 057 067 000 degrees QTc Int : 477 ms SINUS RHYTHM ATRIAL PREMATURE COMPLEX NONSPECIFIC INTRAVENTRICULAR CONDUCTION DELAY Confirmed by Higinio Escobedo ([id number]) on 07/19/2018 2:51:24 PM Referred By: Confirmed By:Higinio Escobedo
[2018-07-20] MEDS ORDERED: metFORMIN HCL 500 MG TAB PO SCH (18:00)
== END 2018-07-19 15:00 | disposition home or self-care (01) ==
LOC: F1N 17:25
PROVIDERS: ADMIT Internal Medicine; ATTEND Internal Medicine
DX: I26.99 Other pulmonary embolism without acute cor pulmonale (principal); J44.9 Chronic obstructive pulmonary disease, unspecified; E86.9 Volume depletion, unspecified; C61 Malignant neoplasm of prostate; M81.0 Age-related osteoporosis without current pathological fracture; J96.11 Chronic respiratory failure with hypoxia; R05 Cough; I25.10 Atherosclerotic heart disease of native coronary artery without angina pectoris; E11.9 Type 2 diabetes mellitus without complications; Z95.1 Presence of aortocoronary bypass graft; Z95.5 Presence of coronary angioplasty implant and graft
CPT/HCPCS: 71046; 71275; 93005; 93970; 96360; 96372; 97161; 99285; G0378; G8978; G8979; G8980; J1650; J1815; Q9967

== ENCOUNTER → 2018-08-01 | Outpatient (CLI) | payer OTHER, MEDICAID | LOC: FIMAGING 08:31 | PROVIDERS: ATTEND Nurse Practitioner | DX: R05 Cough (principal); J44.9 Chronic obstructive pulmonary disease, unspecified; C61 Malignant neoplasm of prostate; M85.9 Disorder of bone density and structure, unspecified ==

== ENCOUNTER → 2018-08-02 | Outpatient (CLI) | payer OTHER, MEDICAID | LOC: FIMAGING 09:36 | PROVIDERS: ATTEND Nurse Practitioner | PROC: CP1Z1ZZ Planar Nuclear Medicine Imaging of Musculoskeletal System, All using Technetium 99m (Tc-99m) (ICD-10-PCS; principal; 2018-08-02) | DX: C79.51 Secondary malignant neoplasm of bone (principal); C61 Malignant neoplasm of prostate | CPT/HCPCS: 78306; A9503 ==